=== PATIENT | male | born 1955 | race Caucasian/White ===

== ENCOUNTER 2018-08-03 22:57 | Inpatient (IN) | payer MEDICAID ==
[~2018-08-03] VITALS: Ht 162.6 cm; Wt 67.7 kg
[2018-08-03] MEDS ORDERED: SOD CHLORIDE 0.9% 500 ML IV STA (23:12)
[2018-08-04] VITALS (11 sets, daily range): BP systolic 98–121; BP diastolic 58–84; PULSE 62–81; RESP 18–20; Ht 162.6 cm; Wt 67.7 kg
[2018-08-04] MEDS ORDERED: NACL 0.9% 3 ML SYG IV SCH (01:30)
[2018-08-04] MEDS ORDERED: ACETAMINOPHEN 325 MG TAB PO PRN (01:30)
[2018-08-04] MEDS ORDERED: BISACODYL (EC) 5 MG TAB PO PRN (01:30)
[2018-08-04] MEDS ORDERED: DOCUSATE SODIUM 100 MG CAP PO PRN (01:30)
[2018-08-04] MEDS ORDERED: ONDANSETRON 4 MG TAB PO PRN (01:30)
--- NOTE | 2018-08-04 01:46 | ERD ---
ER Documentation Chief Complaint Chief Complaint syncopal episode witnessed at [facility], nose/lip trauma, no sz. flu sx's 1 dy HPI Is a 4 female brought in by rescue with syncope witnessed syncopal episode at [facility]. He has had a mild cough for the past 2 days. He denies any focal neurologic complaints. There was no seizure-like activity prior to syncope times. He does have abrasions to his lip and chin and his nose. ROS All systems reviewed and are negative except as per history of present illness. Allergies Allergies: Coded Allergies: No Known Allergy (Unverified , 08/03/18) PMhx/Soc History of Surgery: Yes (Brain) Anesthesia Reaction: No Hx Neurological Disorder: Yes (Epilepsy) Hx Respiratory Disorders: No Hx Cardiac Disorders: No Hx Psychiatric Problems: No Hx Miscellaneous Medical Probl: No Hx Alcohol Use: No Hx Substance Use: No Hx Tobacco Use: No Smoking Status: Never smoker Physical Exam Vitals Vital Signs Date Temp Pulse Resp B/P (MAP) Pulse Ox O2 O2 Flow FiO2 Time Delivery Rate 08/04/18 84 14 113/90 96 Room Air 01:30 (98) 08/04/18 85 14 127/94 96 Room Air 01:00 (105) 08/04/18 85 14 132/98 97 Room Air 00:30 (109) 08/04/18 90 15 132/102 97 Room Air 00:08 (112) 08/03/18 97.8 102 20 139/110 97 23:15 (120) 08/03/18 103 13 139/110 96 Room Air 23:08 (120) Physical Exam Const: No acute distress Head: Atraumatic Eyes: Normal Conjunctiva ENT: Normal External Ears, Nose and Mouth. Neck: Full range of motion. No meningismus. Resp: Clear to auscultation bilaterally Cardio: Regular rate and rhythm, no murmurs Abd: Soft, non tender, non distended. Normal bowel sounds Skin: No petechiae or rashes Back: No midline or flank tenderness Ext: No cyanosis, or edema Neur: Awake and alert Psych: Normal Mood and Affect Result Diagram: 08/03/18231808/03/182318 Results 24 hrs Laboratory Tests Test 08/03/18 23:14 08/03/18 23:19 Bedside Glucose 100 mg/dL White Blood Count 9.7 10^3/ul Red Blood Count 4.59 10^6/ul Hemoglobin 14.4 g/dl Hematocrit 41.6 % Mean Corpuscular Volume 90.6 fl Mean Corpuscular Hemoglobin 31.4 pg Mean Corpuscular Hemoglobin Concent 34.6 g/dl Red Cell Distribution Width 12.7 % Platelet Count 233 10^3/UL Mean Platelet Volume 10.4 fl Immature Granulocytes % 0.500 % Neutrophils % 54.2 % Lymphocytes % 34.1 % Monocytes % 9.1 % Eosinophils % 1.4 % Basophils % 0.7 % Nucleated Red Blood Cells % 0.0 /100WBC Immature Granulocytes # 0.050 10^3/ul Neutrophils # 5.3 10^3/ul Lymphocytes # 3.3 10^3/ul Monocytes # 0.9 10^3/ul Eosinophils # 0.1 10^3/ul Basophils # 0.1 10^3/ul Nucleated Red Blood Cells # 0.0 10^3/ul Prothrombin Time 13.2 Sec Prothrombin Time Ratio 1.0 INR International Normalized Ratio 0.99 Activated Partial Thromboplast Time 28.1 Sec Sodium Level 142 mmol/L Potassium Level 4.0 mmol/L Chloride Level 106 mmol/L Carbon Dioxide Level 25 mmol/L Anion Gap 11 Blood Urea Nitrogen 24 mg/dl Creatinine 0.81 mg/dl Est Glomerular Filtrat Rate mL/min > 60 mL/min Glucose Level 106 mg/dl Calcium Level 9.5 mg/dl Troponin I < 0.012 ng/ml Current Medications Medications Dose Sig/Marc Start Time Status Last (Trade) Ordered Route PRN Stop Time Admin Dose Reason Admin Sodium 500 ml @ Q1H STAT 08/03/18 DC 08/03/18 Chloride 500 mls/hr IV 23:12 23:20 08/04/18 00:11 IV Flush 3 ml PER 08/04/18 (NS 3 ml) PROTOCOL IV 01:30 Ondansetron 4 mg Q6H PRN 08/04/18 HCl (Zofran PO 01:30 Tab) NAUSEA/VOMITI NG 650 mg Q6H PRN 08/04/18 Acetaminophen PO .PAIN 1-3 01:30 (Tylenol OR TEMP Tab) Docusate 100 mg Q12H PRN 08/04/18 Sodium PO 01:30 (Colace) .CONSTIPATION Bisacodyl 5 mg DAILY PRN 08/04/18 (Dulcolax) PO 01:30 .CONSTIPATION Procedures/MDM EKG: Rate/Rhythm: [Normal Sinus Rhythm] QRS, ST, T-waves: [No changes consistent w/ acute ischemia] Impression: [No evidence of ischemia or arrhythmia] Chest X-ray 1V Interpreted by me: Soft Tissue: No acute abnorma lities Bones: No acute abnormalities Mediastinum/Cardiac Silhouette/Lungs: [No acute abnormalities] Patient's syncopal symptoms are unstable at this time and require inpatient workup. No evidence of PE or dissection at this time but occult ischemia or fatal dysrhythmia cannot be ruled out. Departure Diagnosis: Primary Impression: Syncope Syncope type: unspecified Qualified Codes: R55 - Syncope and collapse Condition: CATALINA Huang August 04, 2018 01:46
--- NOTE | 2018-08-04 06:52 | HP ---
Date/Time of Note Date/Time of Note DATE: 08/04/18 TIME: 06:43 Assessment/Plan VTE Prophylaxis SCD applied (from Nsg): Yes Pharmacological prophylaxis: NA/contraindicated Pharm contraindication: low risk/ambulating Lines/Catheters IV Catheter Type (from Nrsg): Saline Lock Assessment/Plan Hospital Course This is a 62-year-old male being admitted to the telemetry floor for observation for: #1 syncope: Witnessed syncopal episode without any seizure-like activity. Patient did sustain facial trauma from the fall. CT scan of the brain did not show any acute abnormalities. We will continue to monitor patient on telemetry, will check orthostatic vitals. Check an echocardiogram. Carotid Doppler. Monitor for any seizure-like activity. Will check hemoglobin A1c, lipid panel, TSH #2 epilepsy: Patient does not know his home medications he states that his friend will bring them. At the current time we will put the patient on Keppra 500 mg twice daily. PRN Ativan for any seizures. #3 Facial trauma: Status post syncopal episode. Patient does have swelling of the face and dried blood of the nares. Will obtain facial x-rays, consider CT of the facial bones if indicated. #4 DVT and GI prophylaxis: SCDs, no GI prophylaxis indicated Further treatment strategy will be implemented as per the clinical course Result Diagram: 08/03/18231808/03/18 2319 Results 24hrs Laboratory Tests Test 08/03/18 23:14 08/03/18 23:19 08/04/18 02:00 Bedside Glucose 100 White Blood Count 9.7 Red Blood Count 4.59 L Hemoglobin 14.4 Hematocrit 41.6 L Mean Corpuscular Volume 90.6 Mean Corpuscular Hemoglobin 31.4 Mean Corpuscular Hemoglobin Concent 34.6 Red Cell Distribution Width 12.7 Platelet Count 233 Mean Platelet Volume 10.4 Immature Granulocytes % 0.500 H Neutrophils % 54.2 Lymphocytes % 34.1 Monocytes % 9.1 Eosinophils % 1.4 Basophils % 0.7 Nucleated Red Blood Cells % 0.0 Immature Granulocytes # 0.050 H Neutrophils # 5.3 Lymphocytes # 3.3 H Monocytes # 0.9 Eosinophils # 0.1 Basophils # 0.1 Nucleated Red Blood Cells # 0.0 Prothrombin Time 13.2 Prothrombin Time Ratio 1.0 INR International Normalized Ratio 0.99 Activated Partial Thromboplast Time 28.1 Sodium Level 142 Potassium Level 4.0 Chloride Level 106 Carbon Dioxide Level 25 Anion Gap 11 Blood Urea Nitrogen 24 H Creatinine 0.81 Est Glomerular Filtrat Rate mL/min > 60 Glucose Level 106 Calcium Level 9.5 Troponin I < 0.012 0.016 Creatine Kinase 96 Creatine Kinase Index 1.8 Creatinine Kinase MB (Mass) 1.68 HPI/ROS Admit Date/Time Admit Date/Time August 04, 2018 at 01:16 Hx of Present Illness Chief complaint: Syncopal episode at [facility] This is a 62-year-old male who presented to the emergency department after a witnessed fall at [facility]. Patient apparently was at [facility] and he was witnessed to have a fall where he landed on his face. Patient was noted to have nasal trauma as well as swelling of his face and lips. He reports that he has a history of epilepsy but there was no reports of seizure-like activity. He did report that he had been feeling sick with cold symptoms over the last few days. He reports that he felt dizzy prior to falling down. He denies any chest pain or nausea vomiting before or after syncopal episode. Allergies: NKDA Medications: See May Const: As per HPI Eyes : No pain discharge or redness or change in visual acuity ENT: No pain, sore throat, congestion, congestion, dysphagia or discharge Respiratory: No shortness of breath, cough, sputum, wheezing, or pleuritic pain Cardiovascular: No chest pain, palpitation, PND, or edema GI : no change in appetite, abdominal pain, nausea, vomiting, diarrhea, constipation, or change in the color his stool Genitourinary: No dysuria, hematuria, flank pain , discharge or CVA tenderness Musculoskeletal: No joint pain, back pain, neck pain, restricted range of motion in neck or joints Skin: As per HPI Neuro: As per HPI Endocrine: No polyuria, polydipsia, temperature intolerance Psych: No hallucination, depression, anxiety or suicidal ideation Additional Comments PROCEDURE: CT Brain without contrast. CLINICAL INDICATION: Syncope TECHNIQUE: A CT of the brain was performed utilizing axial imaging from the skull base through the vertex without IV contrast. Multiplanar reformatted images were made. Images were reviewed on a PACS workstation. CTDIvol: 39.64 mGy DLP: 713.51 mGycm DICOM images are available. One or more of the following dose reduction techniques were utilized: 1.) Automated exposure control 2.) Adjustment of the mA +/- kV according to patient's size 3.) Use of iterative reconstruction technique. COMPARISON: None FINDINGS: CALVARIUM: Regional bones are intact. SINUSES: Paranasal sinuses and mastoid air cells are clear. BRAIN: There is no evidence of intracranial hemorrhage. Prominence of ventricles and cisterns is normal for age. Miller - white differentiation is preserved and there is no evidence of an acute or subacute territorial infarction. No intracranial mass or mass effect. IMPRESSION: Negative unenhanced head CT. RPTAT: HJBB Physician Lisa Date Time Electronically viewed and signed by Physician Lisa on 08/04/2018 02:12 xB/ CC: CATALINA NARAYANAN [id number] PROCEDURE: XR Chest, 1 View CLINICAL INDICATION: Syncope. TECHNIQUE: Frontal view of the chest. COMPARISON: None FINDINGS: LUNGS: Unremarkable. No consolidation. PLEURAL SPACE: Unremarkable. No pneumothorax. HEART: Unremarkable. No cardiomegaly. MEDIASTINUM: Unremarkable. BONES/JOINTS: Degenerative spine changes are noted. VASCULATURE: The abdominal aorta is atherosclerotic. No aneurysm. IMPRESSION: No acute cardiopulmonary disease demonstrated. RPTAT: HS Quinten Salter, Physician Electronics Tester Date Time Electronically viewed and signed by Quinten Salter Physician Electronics Tester on 0 08/04/2018 00:54 RmC/ CC: CATALINA NARAYANAN [id number] PMH/Family/Social Past Medical History Epilepsy Medications Current Medications IV Flush (NS 3 ml) 3 ml PER PROTOCOL IV ; Start 08/04/18 at 01:30 Ondansetron HCl (Zofran Tab) 4 mg Q6H PRN PO NAUSEA/VOMITING; Start 08/04/18 at 01:30 Acetaminophen (Tylenol Tab) 650 mg Q6H PRN PO .PAIN 1-3 OR TEMP; Start 08/04/18 at 01:30 Docusate Sodium (Colace) 100 mg Q12H PRN PO .CONSTIPATION; Start 08/04/18 at 01:30 Bisacodyl (Dulcolax) 5 mg DAILY PRN PO .CONSTIPATION; Start 08/04/18 at 01:30 Coded Allergies: No Known Allergy (Unverified , 08/03/18) Past Surgical History Abdominal surgery? Family History Significant Family History: no pertinent family hx Social History Alcohol Use: none Smoking Status: Never smoker Drug Use: none Exam/Review of Systems Vital Signs Vitals Vital Signs Date Temp Pulse Resp B/P (MAP) Pulse Ox O2 O2 Flow FiO2 Time Delivery Rate 08/04/18 81 04:00 08/04/18 97.6 18 121/84 97 Room Air 02:20 (96) Exam Exam General: Patient is a pleasant male currently lying in bed in no acute distress, he does have facial trauma noted HEENT: Swelling of the upper lip, dried blood noted of the nares, swelling of the cheeks Neck: Supple with full range of motion. No rigidity or meningismus Chest: Nontender Lungs: Clear to auscultation bilaterally no crackles rales or wheezing Heart: Normal S1-S2, Regular rhythm and rate. Abdomen: Soft , nontender, nondistended , bowel sounds are present. No guarding no rebound tenderness , No masses or organomegaly. No costovertebral temporal angle mass Extremities: Normal to inspection, no edema no cyanosis Neurologic: Normal mental status, speech normal, cranial nerves II through XII are intact, motor and sensory are intact, gait not assessed secondary to patient feeling tired Additional Comments PROCEDURE: CT Brain without contrast. CLINICAL INDICATION: Syncope TECHNIQUE: A CT of the brain was performed utilizing axial imaging from the skull base through the vertex without IV contrast. Multiplanar reformatted images were made. Images were reviewed on a PACS workstation. CTDIvol: 39.64 mGy DLP: 713.51 mGycm DICOM images are available. One or more of the following dose reduction techniques were utilized: 1.) Automated exposure control 2.) Adjustment of the mA +/- kV according to patient's size 3.) Use of iterative reconstruction technique. COMPARISON: None FINDINGS: CALVARIUM: Regional bones are intact. SINUSES: Paranasal sinuses and mastoid air cells are clear. BRAIN: There is no evidence of intracranial hemorrhage. Prominence of ventricles and cisterns is normal for age. Miller - white differentiation is preserved and there is no evidence of an acute or subacute territorial infarction. No intracranial mass or mass effect. IMPRESSION: Negative unenhanced head CT. RPTAT: HJBB Physician Lisa Date Time Electronically viewed and signed by Physician Lisa on 08/04/2018 02:12 xB/ CC: CATALINA NARAYANAN [id number] PROCEDURE: XR Chest, 1 View CLINICAL INDICATION: Syncope. TECHNIQUE: Frontal view of the chest. COMPARISON: None FINDINGS: LUNGS: Unremarkable. No consolidation. PLEURAL SPACE: Unremarkable. No pneumothorax. HEART: Unremarkable. No cardiomegaly. MEDIASTINUM: Unremarkable. BONES/JOINTS: Degenerative spine changes are noted. VASCULATURE: The abdominal aorta is atherosclerotic. No aneurysm. IMPRESSION: No acute cardiopulmonary disease demonstrated. RPTAT: HS Quinten Salter, Physician Electronics Tester Date Time Electronically viewed and signed by Quinten Salter Physician Electronics Tester on 08/04/2018 00:54 RmC/ CC: CATALINA NARAYANAN [id number] EKG: Normal sinus rhythm, no ST or T wave noise concerning for acute ischemia VERITO DAVALOS August 04, 2018 06:52
[2018-08-04] MEDS ORDERED: LEVETIRACETAM 500 MG TAB PO SCH (09:00)
[2018-08-04] MEDS ORDERED: FLUO20CA22 PO (11:55)
[2018-08-04] MEDS ORDERED: CARB100T2 PO (11:55)
--- NOTE | 2018-08-04 14:48 | RADRPT ---
Echocardiogram Report Patient Name: JOSELITO JACOBOPatient ID: [id number] : 1955 (62y 10m)Study Date: 08/04/2018 7:21:12 AM Gender: Venkatcession #: [id number] Tech: Maria Del Carmen Arita [facility] Location: 632 Ref.Physician: VERITO DAVALOS Height(Cm): BSA: Weight(Kg): Quality: AdequateOrder Physician: VERITO DAVALOS Account #: Procedures: Echocardiographic Report: Transthoracic echocardiogram with complete 2D, M-Mode, and doppler examination. Indications: Syncope. Measurements: 2D/M Mode Doppler Measurement Value Normal Range Measurement Value Normal Range LVIDd 2D 4.3 [ 4.2 - 5.8 ] cm AV Peak Jordon 1.2 [ 100.0 - 170.0 ] cm/sec LVIDs 2D 2.5 [ 2.5 - 4.0 ] cm AV Peak PG 6.0 [ 2.0 - 9.0 ] mmHg LVPWd 2D 1.0 [ 0.6 - 1.0 ] cm LVOT Peak Jordon 0.8 [ 70.0 - 110.0 ] cm/sec IVSd 2D 1.0 [ 0.6 - 1.0 ] cm LVOT Peak PG 2.0 [ 2.0 - 6.0 ] mmHg AoR Diam 2D 3.4 [ 2.6 - 3.4 ] cm MV E Peak Jordon 0.7 [ 60.0 - 130.0 ] cm/sec EDV 2D 82.2 [ 62.0 - 150.0 ] ml MV A Peak Jordon 0.8 [ 100.0 - 120.0 ] cm/sec ESV 2D 22.8 [ 21.0 - 61.0 ] ml MV E/A 0.9 [ 0.8 - 1.5 ] ratio EF 2D 72.3 [ 52.0 - 72.0 ] percent MV Decel Time 232 [ 104 - 258 ] msec LA Dimen 2D 3.3 [ 3.0 - 4.0 ] cm Lat E` Jordon 0.1 [ 10.0 - 15.0 ] cm/sec Lateral E/E` 6.8 [ 1.0 - 2.0 ] ratio MV E/A 0.9 [ 0.8 - 1.5 ] ratio Findings: Left Ventricle: Normal left ventricular systolic function. Normal left ventricular cavity size. Normal left ventricular wall thickness. Ejection fraction is visually estimated at 55-60 %. Tissue Doppler/Mitral Doppler indices are consistent with impaired relaxation (Stage I diastolic dysfunction). Right Ventricle: Normal right ventricular size. Normal right ventricular systolic function. Left Atrium: There is mild enlargement of left atrium. Right Atrium: The right atrium is normal in size. Mitral Valve: Normal appearance and function of the mitral valve with trace physiologic regurgitation. Aortic Valve: Normal appearance of the aortic valve. No significant aortic stenosis or insufficiency. Tricuspid Valve: Normal appearance of the tricuspid valve. Unable to obtain RVSP due to minimal presence of tricuspid regurgitation. Pulmonic Valve: Normal pulmonic valve appearance. Pericardium: Normal pericardium with no significant pericardial effusion. Aorta: Normal aortic root. IVC: Normal size and normal respiratory collapse consistent with normal right atrial pressure. Conclusions: Technically difficult study. Normal left ventricular systolic function. Normal left ventricular cavity size. Normal left ventricular wall thickness. Ejection fraction is visually estimated at 55-60 %. Tissue Doppler/Mitral Doppler indices are consistent with impaired relaxation (Stage I diastolic dysfunction). No significant valvular stenosis or regurgitation seen. Unable to obtain RVSP due to minimal presence of tricuspid regurgitation. Normal size and normal respiratory collapse consistent with normal right atrial pressure. Electronically Signed By: Jeremías Gomez 2018-08-04 14:48:10 PDT
--- NOTE | 2018-08-04 16:12 | PN ---
Date/Time of Note Date/Time of Note DATE: 08/04/18 TIME: 16:07 Assessment/Plan VTE Prophylaxis Risk score (from Nsg)>0 risk: 4 SCD applied (from Nsg): Yes Pharmacological prophylaxis: NA/contraindicated Pharm contraindication: low risk/ambulating Lines/Catheters IV Catheter Type (from Nrsg): Saline Lock Assessment/Plan Assessment/Plan 62 yo man history of seizure disorder admitted for syncope after witnessed fall. # syncope: - Witnessed syncopal episode without any seizure-like activity. - Patient did sustain facial trauma from the fall. - CT scan of the brain did not show any acute abnormalities. - Continue 24 hours of telemetry. - Note that his carbemazepine levels are actually supratherapeutic, so he is at least taking his medications. Makes seizure much less likely. - Currently vasovagal syncope is top of my differential. # epilepsy: - Continue home carbemazepine. - Discontinue keppra. # Facial trauma: - On XR face, patient has nasal bone fractures but appearance of bone shows these may actually be chronic. - Currently no respiratory compromise - No maxillofacial surgeon here. Patient will need to followup outpatient at [facility]. # DVT and GI prophylaxis: SCDs, no GI prophylaxis indicated Dispo: Anticipate discharge in 24-48 hours. Result Diagram: 08/04/1882108/04/18821 Subjective 24 Hr Interval Summary Free Text/Dictation No acute interval events. The patient gave me a slightly different history. He says there was no worship involved; he was walking down the street when he felt dizzy; fell and struck his face. Exam/Review of Systems Exam Vitals Vital Signs Date Temp Pulse Resp B/P (MAP) Pulse Ox O2 O2 Flow FiO2 Time Delivery Rate 08/04/18 75 12:00 08/04/18 98.3 20 98/58 (71) 95 11:51 08/04/18 Room Air 02:20 Exam General: Patient is a pleasant male currently lying in bed in no acute distress, he does have facial trauma noted HEENT: Swelling of the upper lip, dried blood noted of the nares, swelling of the cheeks Neck: Supple with full range of motion. No rigidity or meningismus Chest: Nontender Lungs: Clear to auscultation bilaterally no crackles rales or wheezing Heart: Normal S1-S2, Regular rhythm and rate. Abdomen: Soft , nontender, nondistended , bowel sounds are present. Extremities: Normal to inspection, no edema no cyanosis Results Results 24hrs Laboratory Tests Test 08/03/18 23:14 08/03/18 23:19 08/04/18 02:00 08/04/18 08:20 Bedside Glucose 100 White Blood Count 9.7 Red Blood Count 4.59 L Hemoglobin 14.4 Hematocrit 41.6 L Mean Corpuscular 90.6 Volume Mean Corpuscular 31.4 Hemoglobin Mean Corpuscular 34.6 Hemoglobin Concent Red Cell 12.7 Distribution Width Platelet Count 233 Mean Platelet Volume 10.4 Immature 0.500 H Granulocytes % Neutrophils % 54.2 Lymphocytes % 34.1 Monocytes % 9.1 Eosinophils % 1.4 Basophils % 0.7 Nucleated Red Blood 0.0 Cells % Immature 0.050 H Granulocytes # Neutrophils # 5.3 Lymphocytes # 3.3 H Monocytes # 0.9 Eosinophils # 0.1 Basophils # 0.1 Nucleated Red Blood 0.0 Cells # Prothrombin Time 13.2 Prothrombin Time 1.0 Ratio INR International 0.99 Normalized Ratio Activated 28.1 Partial Thromboplast Time Sodium Level 142 Potassium Level 4.0 Chloride Level 106 Carbon Dioxide Level 25 Anion Gap 11 Blood Urea Nitrogen 24 H Creatinine 0.81 Est Glomerular > 60 Filtrat Rate mL/min Glucose Level 106 Calcium Level 9.5 Troponin I < 0.012 0.016 Creatine Kinase 96 Creatine Kinase 1.8 Index Creatinine Kinase MB 1.68 (Mass) Phenytoin (Dilantin) < 3.0 L Level Carbamazepine 14.4 H (Tegretol) Level Test 08/04/18 08:21 08/04/18 08:22 Creatine Kinase 63 Creatine Kinase 2.8 Index Creatinine Kinase MB 1.74 (Mass) Troponin I < 0.012 White Blood Count 8.3 Red Blood Count 4.45 L Hemoglobin 13.7 L Hematocrit 40.3 L Mean Corpuscular 90.6 Volume Mean Corpuscular 30.8 Hemoglobin Mean Corpuscular 34.0 Hemoglobin Concent Red Cell 13.0 Distribution Width Platelet Count 201 Mean Platelet Volume 10.5 H Immature 0.600 H Granulocytes % Neutrophils % 59.4 Lymphocytes % 28.5 Monocytes % 9.3 Eosinophils % 1.5 Basophils % 0.7 Nucleated Red Blood 0.0 Cells % Immature 0.050 H Granulocytes # Neutrophils # 4.9 Lymphocytes # 2.4 Monocytes # 0.8 Eosinophils # 0.1 Basophils # 0.1 Nucleated Red Blood 0.0 Cells # Sodium Level 143 Potassium Level 4.3 Chloride Level 109 Carbon Dioxide Level 26 Anion Gap 8 Blood Urea Nitrogen 18 Creatinine 0.69 Est Glomerular > 60 Filtrat Rate mL/min Glucose Level 93 Hemoglobin A1c 5.3 Calcium Level 8.9 Magnesium Level 2.2 Total Bilirubin 0.4 Direct Bilirubin 0.00 Indirect Bilirubin 0.4 Aspartate Amino 24 Transf (AST/SGOT) Alanine 33 Aminotransferase (AL T/SGPT) Alkaline Phosphatase 165 H Total Protein 7.6 Albumin 4.2 Globulin 3.40 H Albumin/Globulin 1.23 Ratio Triglycerides Level 133 Cholesterol Level 149 LDL Cholesterol, 73 Calculated HDL Cholesterol 49 Cholesterol/HDL 3.0 Ratio Thyroid Stimulating 1.920 Hormone (TSH) Medications Medication Current Medications IV Flush (NS 3 ml) 3 ml PER PROTOCOL IV ; Start 08/04/18 at 01:30 Ondansetron HCl (Zofran Tab) 4 mg Q6H PRN PO NAUSEA/VOMITING; Start 08/04/18 at 01:30 Acetaminophen (Tylenol Tab) 650 mg Q6H PRN PO .PAIN 1-3 OR TEMP; Start 08/04/18 at 01:30 Docusate Sodium (Colace) 100 mg Q12H PRN PO .CONSTIPATION; Start 08/04/18 at 01:30 Bisacodyl (Dulcolax) 5 mg DAILY PRN PO .CONSTIPATION; Start 08/04/18 at 01:30 Levetiracetam (Keppra) 500 mg BID PO Last administered on 08/04/18at 09:04; Admin Dose 500 MG; Start 08/04/18 at 09:00 ELIZABETH ENRIQUEZ MD August 04, 2018 16:12
--- NOTE | 2018-08-04 17:57 | CONS ---
Assessment/Plan Assessment/Plan Hospital Course (Demo Recall) Syncope: By history and in the setting of elevated BUN, would suspect orthostatic hypotension possibly leading to vasovagal syncope due to dehydration. No arrhythmias on tele. Echo unremarkable. H/o seizures: no witnessed seizures -check orthostatics -monitor on tele tonight. Likely d/c in am if asymptomatic Consultation Date/Type/Reason Admit Date/Time August 04, 2018 at 01:16 Date of Consultation: August 04, 2018 Type of Consult Cardiology Reason for Consultation Syncope Requesting Provider: VERITO DAVALOS Date/Time of Note DATE: 08/04/18 TIME: 17:51 Hx of Present Illness 62 yo M with a h/o seizures on antiepileptics, who presented after a syncopal episode. A bilingual interpreter was used for history. He was apparently at [employer] in the evening. He stood up from his seat and started to walk. He immediately started to feel dizzy and next thing he remembers is being on the ground. He feel face forward and injured his face. The syncope was witnessed and no seizure activity was reported. He has had prior syncopal episodes in the setting of standing up and apparently was told the cause was uncertain. No chest pain or SO B. No known cardiac disease. Currently without complaints per hPI Past Medical History per hPI Home Meds Reported Medications Carbamazepine* (Carbamazepine*) 100 Mg Tab.chew, 600 MG PO BID, #60 TAB.CHEW 08/04/18 Fluoxetine Hcl* (Fluoxetine Hcl*) 20 Mg Capsule, 20 MG PO DAILY, CAP 08/04/18 Medications Current Medications IV Flush (NS 3 ml) 3 ml PER PROTOCOL IV ; Start 08/04/18 at 01:30 Ondansetron HCl (Zofran Tab) 4 mg Q6H PRN PO NAUSEA/VOMITING; Start 08/04/18 at 01:30 Acetaminophen (Tylenol Tab) 650 mg Q6H PRN PO .PAIN 1-3 OR TEMP; Start 08/04/18 at 01:30 Docusate Sodium (Colace) 100 mg Q12H PRN PO .CONSTIPATION; Start 08/04/18 at 01:30 Bisacodyl (Dulcolax) 5 mg DAILY PRN PO .CONSTIPATION; Start 08/04/18 at 01:30 Carbamazepine (Tegretol) 600 mg BID PO ; Start 08/04/18 at 21:00 Fluoxetine HCl (Prozac) 20 mg DAILY PO ; Start 08/05/18 at 09:00 Allergies: Coded Allergies: No Known Allergy (Unverified , 08/03/18) Social History Alcohol Use: none Smoking Status: Never smoker Drug Use: none Exam/Review of Systems Vital Signs Vitals Vital Signs Date Temp Pulse Resp B/P (MAP) Pulse Ox O2 O2 Flow FiO2 Time Delivery Rate 08/04/18 75 12:00 08/04/18 98.3 20 98/58 (71) 95 11:51 08/04/18 Room Air 02:20 Exam Constitutional: alert, oriented Psych: no complaints, nl mood/affect Head: normocephalic; No atraumatic Neck: No jvd Respiratory: clear to auscultation; No crackles/rales Cardiovascular: regular rate and rhythm; No edema, No systolic murmur Gastrointestinal: soft, non-tender; No distended Musculoskeletal: nl extremities to inspection Neurological: nl mental status, nl speech Labs Result Diagram: 08/04/18 0822 08/04/18 0822 Results 24hrs Laboratory Tests Test 08/03/18 23:14 08/03/18 23:19 08/04/18 02:00 08/04/18 08:20 Bedside Glucose 100 White Blood Count 9.7 Red Blood Count 4.59 L Hemoglobin 14.4 Hematocrit 41.6 L Mean Corpuscular 90.6 Volume Mean Corpuscular 31.4 Hemoglobin Mean Corpuscular 34.6 Hemoglobin Concent Red Cell 12.7 Distribution Width Platelet Count 233 Mean Platelet Volume 10.4 Immature 0.500 H Granulocytes % Neutrophils % 54.2 Lymphocytes % 34.1 Monocytes % 9.1 Eosinophils % 1.4 Basophils % 0.7 Nucleated Red Blood 0.0 Cells % Immature 0.050 H Granulocytes # Neutrophils # 5.3 Lymphocytes # 3.3 H Monocytes # 0.9 Eosinophils # 0.1 Basophils # 0.1 Nucleated Red Blood 0.0 Cells # Prothrombin Time 13.2 Prothrombin Time 1.0 Ratio INR International 0.99 Normalized Ratio Activated 28.1 Partial Thromboplast Time Sodium Level 142 Potassium Level 4.0 Chloride Level 106 Carbon Dioxide Level 25 Anion Gap 11 Blood Urea Nitrogen 24 H Creatinine 0.81 Est Glomerular > 60 Filtrat Rate mL/min Glucose Level 106 Calcium Level 9.5 Troponin I < 0.012 0.016 Creatine Kinase 96 Creatine Kinase 1.8 Index Creatinine Kinase MB 1.68 (Mass) Phenytoin (Dilantin) < 3.0 L Level Carbamazepine 14.4 H (Tegretol) Level Test 08/04/18 08:21 08/04/18 08:22 Creatine Kinase 63 Creatine Kinase 2.8 Index Creatinine Kinase MB 1.74 (Mass) Troponin I < 0.012 White Blood Count 8.3 Red Blood Count 4.45 L Hemoglobin 13.7 L Hematocrit 40.3 L Mean Corpuscular 90.6 Volume Mean Corpuscular 30.8 Hemoglobin Mean Corpuscular 34.0 Hemoglobin Concent Red Cell 13.0 Distribution Width Platelet Count 201 Mean Platelet Volume 10.5 H Immature 0.600 H Granulocytes % Neutrophils % 59.4 Lymphocytes % 28.5 Monocytes % 9.3 Eosinophils % 1.5 Basophils % 0.7 Nucleated Red Blood 0.0 Cells % Immature 0.050 H Granulocytes # Neutrophils # 4.9 Lymphocytes # 2.4 Monocytes # 0.8 Eosinophils # 0.1 Basophils # 0.1 Nucleated Red Blood 0.0 Cells # Sodium Level 143 Potassium Level 4.3 Chloride Level 109 Carbon Dioxide Level 26 Anion Gap 8 Blood Urea Nitrogen 18 Creatinine 0.69 Est Glomerular > 60 Filtrat Rate mL/min Glucose Level 93 Hemoglobin A1c 5.3 Calcium Level 8.9 Magnesium Level 2.2 Total Bilirubin 0.4 Direct Bilirubin 0.00 Indirect Bilirubin 0.4 Aspartate Amino 24 Transf (AST/SGOT) Alanine 33 Aminotransferase (AL T/SGPT) Alkaline Phosphatase 165 H Total Protein 7.6 Albumin 4.2 Globulin 3.40 H Albumin/Globulin 1.23 Ratio Triglycerides Level 133 Cholesterol Level 149 LDL Cholesterol, 73 Calculated HDL Cholesterol 49 Cholesterol/HDL 3.0 Ratio Thyroid Stimulating 1.920 Hormone (TSH) Medications Medications Current Medications IV Flush (NS 3 ml) 3 ml PER PROTOCOL IV ; Start 08/04/18 at 01:30 Ondansetron HCl (Zofran Tab) 4 mg Q6H PRN PO NAUSEA/VOMITING; Start 08/04/18 at 01:30 Acetaminophen (Tylenol Tab) 650 mg Q6H PRN PO .PAIN 1-3 OR TEMP; Start 08/04/18 at 01:30 Docusate Sodium (Colace) 100 mg Q12H PRN PO .CONSTIPATION; Start 08/04/18 at 01:30 Bisacodyl (Dulcolax) 5 mg DAILY PRN PO .CONSTIPATION; Start 08/04/18 at 01:30 Carbamazepine (Tegretol) 600 mg BID PO ; Start 08/04/18 at 21:00 Fluoxetine HCl (Prozac) 20 mg DAILY PO ; Start 08/05/18 at 09:00 KIRBY LI August 04, 2018 17:56
[2018-08-04] MEDS: carBAMAZepine CHEW 100 MG CHEW PO SCH (21:32)
[2018-08-05] VITALS (11 sets, daily range): BP systolic 101–119; BP diastolic 70–79; PULSE 69–93; RESP 20
[2018-08-05] MEDS: carBAMAZepine CHEW 100 MG CHEW PO SCH (08:30)
[2018-08-05] MEDS ORDERED: FLUOXETINE 20 MG CAP PO SCH (09:00)
--- NOTE | 2018-08-05 11:22 | CONS ---
Assessment/Plan Assessment/Plan Hospital Course (Demo Recall) Syncope: By history and in the setting of elevated BUN, would suspect orthostatic hypotension possibly leading to vasovagal syncope due to dehydration. No arrhythmias on tele. Echo unremarkable. H/o seizures: no witnessed seizures -ok for d/c from my perspective Consultation Date/Type/Reason Admit Date/Time August 04, 2018 at 01:16 Initial Consult Date 08/04/18 Type of Consult Cardiology Requesting Provider: VERITO DAVALOS Date/Time of Note DATE: 08/05/18 TIME: 11:21 24 HR Interval Summary Free Text/Dictation No events. No complaints. No arrhythmias. No dizziness. Exam/Review of Systems Vital Signs Vitals Vital Signs Date Temp Pulse Resp B/P (MAP) Pulse Ox O2 O2 Flow FiO2 Time Delivery Rate 08/05/18 97.7 69 20 104/72 96 Room Air 11:08 (83) Intake and Output 08/04/18 08/04/18 08/05/18 1515:00 23:00 07:00 IntakeIntake Total 350 ml BalanceBalance 350 ml Exam Constitutional: alert, oriented Psych: no complaints, nl mood/affect Head: normocephalic, atraumatic Neck: supple; No jvd Respiratory: clear to auscultation; No crackles/rales Cardiovascular: regular rate and rhythm; No edema, No systolic murmur Gastrointestinal: soft, non-tender Neurological: nl mental status, nl speech Labs Result Diagram: 08/05/18 0458 08/05/18 0458 Results 24hrs Laboratory Tests Test 08/05/18 04:58 White Blood Count 7.0 Red Blood Count 4.43 L Hemoglobin 13.7 L Hematocrit 40.5 L Mean Corpuscular Volume 91.4 Mean Corpuscular Hemoglobin 30.9 Mean Corpuscular Hemoglobin Concent 33.8 Red Cell Distribution Width 12.7 Platelet Count 201 Mean Platelet Volume 10.6 H Immature Granulocytes % 0.300 Neutrophils % 45.9 Lymphocytes % 41.1 Monocytes % 10.0 Eosinophils % 2.0 Basophils % 0.7 Nucleated Red Blood Cells % 0.0 Immature Granulocytes # 0.020 Neutrophils # 3.2 Lymphocytes # 2.9 Monocytes # 0.7 Eosinophils # 0.1 Basophils # 0.1 Nucleated Red Blood Cells # 0.0 Sodium Level 143 Potassium Level 3.9 Chloride Level 106 Carbon Dioxide Level 28 Anion Gap 9 Blood Urea Nitrogen 13 Creatinine 0.68 Est Glomerular Filtrat Rate mL/min > 60 Glucose Level 104 Calcium Level 9.1 Total Bilirubin 0.4 Direct Bilirubin 0.00 Indirect Bilirubin 0.4 Aspartate Amino Transf (AST/SGOT) 27 Alanine Aminotransferase (ALT/SGPT) 26 Alkaline Phosphatase 168 H Total Protein 7.7 Albumin 4.1 Globulin 3.60 H Albumin/Globulin Ratio 1.13 Medications Medications Current Medications IV Flush (NS 3 ml) 3 ml PER PROTOCOL IV ; Start 08/04/18 at 01:30 Ondansetron HCl (Zofran Tab) 4 mg Q6H PRN PO NAUSEA/VOMITING; Start 08/04/18 at 01:30 Acetaminophen (Tylenol Tab) 650 mg Q6H PRN PO .PAIN 1-3 OR TEMP; Start 08/04/18 at 01:30 Docusate Sodium (Colace) 100 mg Q12H PRN PO .CONSTIPATION; Start 08/04/18 at 01:30 Bisacodyl (Dulcolax) 5 mg DAILY PRN PO .CONSTIPATION; Start 08/04/18 at 01:30 Carbamazepine (Tegretol) 600 mg BID PO Last administered on 08/05/18at 08:30; Admin Dose 600 MG; Start 08/04/18 at 21:00 Fluoxetine HCl (Prozac) 20 mg DAILY PO Last administered on 08/05/18at 08:30; Admin Dose 20 MG; Start 08/05/18 at 09:00 KIRBY LI August 05, 2018 11:22
--- NOTE | 2018-08-05 14:31 | RADRPT ---
Vent Rate: 84 bpm RR Interval: 0 msec LA Interval: 158 msec QRS Duration: 94 msec QT Interval: 370 msec QTC Interval: 437 msec P-R-T [place]: 47 - -10 - 30 degrees Normal sinus rhythm Normal ECG Electronically Signed By: [facility]
--- NOTE | 2018-08-05 14:44 | PDOCDIS ---
Discharge Instructions DIAGNOSIS Discharge Diagnosis Vasovagal syncope CONDITION [id number] Patient Condition: [id number] Good HOME CARE INSTRUCTIONS: [id number] Diet Instructions: [id number] Regular ACTIVITY: [id number] Activity Restrictions: [id number] No Restrictions FOLLOW UP/APPOINTMENTS Follow-up Plan 1. Continue to take all medications as prescribed. 2. See your primary care doctor in 1-2 weeks. 3. You have a nose fracture. Keep your head elevated. Gently clean your wounds with soap and water every daily. If you develop nasal swelling, you can use ice to reduce inflammation. If you have severe swelling or if you develop difficulty breathing, go to a specialized center to see a maxillofacial surgeon. You can go to [facility] [address] [id number]. 4. See your primary care doctor in 1-2 weeks. 1. Continuar tomando todos los medicamentos segn lo prescrito. 2. Consulte a [facility] prim[facility] en 1-2 semanas. 3. Tienes teresita fractura de nariz. Mantenga wharton chrystal elevada. Limpie suavemente onesimo heridas con agua y jabn todos los carmona. Si desarrolla hinchazn nasal, puede usar hielo para reducir la inflamacin. Si tiene teresita hinchazn severa o si tiene dificultad para respirar, vaya a un centro especializado para danie a un cirujano maxilofacial. Puede ir a [facility] [address] [place] [address]. 4. Consulte a [facility] atencin primaria en 1-2 semanas. ELIZABETH ENRIQUEZ MD August 05, 2018 14:44
--- NOTE | 2018-08-05 18:58 | DS ---
Date/Time of Note Date/Time of Note DATE: 08/05/18 TIME: 18:54 Discharge Summary Admission/Discharge Info Admit Date/Time August 04, 2018 at 01:16 Discharge Date/Time August 05, 2018 at 18:29 Discharge Diagnosis Vasovagal syncope Patient Condition: Good Consults Dr. Gomez, cardiology Procedures None Hx of Present Illness Chief complaint: Syncopal episode at [facility] This is a 62-year-old male who presented to the emergency department after a witnessed fall at [facility]. Patient apparently was at [facility] and he was witnessed to have a fall where he landed on his face. Patient was noted to have nasal trauma as well as swelling of his face and lips. He reports that he has a history of epilepsy but there was no reports of seizure-like activity. He did report that he had been feeling sick with cold symptoms over the last few days. He reports that he felt dizzy prior to falling down. He denies any chest pain or nausea vomiting before or after syncopal episode. Allergies: NKDA Medications: See [facility] Hospital Course The patient was admitted to telemetry and was observed for 24 hours. There were not unusual events on the lidar scientist. His carbemazepine levels were slightly supratherapeutic, so he is taking his antiepileptics. Again, witnesses did not report convulsive activity associated with the fall so seizure was not suspected. Most likely vasovagal syncope. The patient was found to have a nasal fracture on face XR. However, the patient said that he actually suffered this fracture several years ago. He did have some facial bleeding. There was no large hematoma, no orbital fracture, and no respiratory compromise. He was given information for a maxillofacial surgeon at [facility]. Home Meds Reported Medications Carbamazepine* (Carbamazepine*) 100 Mg Tab.chew, 600 MG PO BID, #60 TAB.CHEW 08/04/18 Fluoxetine Hcl* (Fluoxetine Hcl*) 20 Mg Capsule, 20 MG PO DAILY, CAP 08/04/18 Follow-up Plan 1. Continue to take all medications as prescribed. 2. See your primary care doctor in 1-2 weeks. 3. You have a nose fracture. Keep your head elevated. Gently clean your wounds with soap and water every daily. If you develop nasal swelling, you can use ice to reduce inflammation. If you have severe swelling or if you develop difficulty breathing, go to a specialized center to see a maxillofacial surgeon. You can go to [facility] [address] [place] [address]. 4. See your primary care doctor in 1-2 weeks. 1. Continuar tomando todos los medicamentos segn lo prescrito. 2. Consulte a [facility] atencin primaria en 1-2 semanas. 3. Tienes teresita fractura de nariz. Mantenga wharton chrystal elevada. Limpie suavemente onesimo heridas con agua y jabn todos los carmona. Si desarrolla hinchazn nasal, puede usar hielo para reducir la inflamacin. Si tiene teresita hinchazn severa o si tiene dificultad para respirar, vaya a un centro especializado para danie a un cirujano maxilofacial. Puede ir a [facility] [address] [place] [address]. 4. Consulte a [facility] de atencin primaria en 1-2 semanas. Primary Care Provider Care Physician No Primary Time spent on discharge: > 30 minutes ELIZABETH ENRIQUEZ MD August 05, 2018 18:58
== END 2018-08-05 18:29 | disposition home or self-care (01) | DRG 312 ==
LOC: E/R 22:57 → 6WM 08-04 01:16
PROVIDERS: ADMIT Family Medicine; ATTEND Internal Medicine
DX: R55 Syncope and collapse (principal); G40.909 Epilepsy, unspecified, not intractable, without status epilepticus; S09.93XA Unspecified injury of face, initial encounter; W18.30XA Fall on same level, unspecified, initial encounter
CPT/HCPCS: 36415; 70140; 70450; 71045; 80048; 80053; 80061; 80156; 80185; 82306; 82550; 82553; 82962; 83036; 83735; 84443; 84484; 85025; 85610; 85730; 93005; 93306; 93880; 97161; J7040